=== PATIENT | female | born 1970 | race Two or more races ===

== ENCOUNTER 2021-12-14 13:46 | Emergency (ER) | payer BC ==
[~2021-12-14] VITALS: Ht 170.2 cm; Wt 105.0 kg
[2021-12-14 14:23] VITALS: BP 129/89
[2021-12-14] MEDS ORDERED: naproxen 500mg tablet PO ONE (15:40)
[2021-12-14] MEDS ORDERED: NAPR-996 PO (15:42)
[2021-12-14 15:56] LABS: CLARITY,URINE CLEAR (Clear); COLOR,URINE YELLOW (Yellow); GLUCOSE, URINE NEGATIVE (Neg); KETONES,URINE 15 mg/dl (Neg); LEUKOCYTE ESTERASE ,URINE NEGATIVE (Neg); NITRITES, URINE NEGATIVE (Neg); OCCULT BLOOD,URINE TRACE-INTACT (Neg); PH,URINE 5.5 (4.8-8.0); PROTEIN,URINE NEGATIVE (Neg); UROBILINOGEN,URINE 0.2 E.U/dL (0.2-1.0)
[2021-12-14 16:01] LABS: UA COLLECTION TYPE NON-SPECIFIED
[2021-12-14 16:02] LABS: BACTERIA,URINE NONE SEEN /HPF (Neg); RBC,URINE 0-2 /HPF (0-2); WBC,URINE 0-4 /HPF (0-4)
[2021-12-14 16:03] LABS: MUCUS STRANDS NONE SEEN /LPF (Neg); SQUAMOUS EPITHELIAL CELL,UR FEW /LPF (FEW)
== END 2021-12-14 16:56 | disposition home or self-care (01) ==
LOC: ER 13:48
DX: J10.1 Influenza due to other identified influenza virus with other respiratory manifestations (principal); Z20.822 Contact with and (suspected) exposure to COVID-19; Z79.899 Other long term (current) drug therapy
CPT/HCPCS: 81001; 87502; 87503; 87635; 99283; C9803